=== PATIENT | female | born 1995 | race Caucasian/White ===

== ENCOUNTER → 2020-01-23 | Outpatient (CLI) | payer OTHER ==
[~2020-01-23] MED LIST: NONE PER PT
== END | disposition home or self-care (01) ==
LOC: STAR 08:00
PROVIDERS: ATTEND Dermatology
DX: Z20.828 Contact with and (suspected) exposure to other viral communicable diseases (principal); M25.371 Other instability, right ankle; M25.571 Pain in right ankle and joints of right foot
CPT/HCPCS: U0003

== ENCOUNTER 2020-01-28 12:58 | Day surgery (SDC) | payer OTHER ==
[~2020-01-28] VITALS: Ht 157.5 cm; Wt 117.0 kg
[2020-01-28] MEDS ORDERED: BUPIVACAINE/PF 0.25% ONE (13:03)
[2020-01-28] MEDS ORDERED: EPINEPHRINE 1 MG/ML, 1ML ONE ×2 (13:03→14:45)
[2020-01-28] MEDS ORDERED: NO HOME MEDS PER PT (13:19)
[2020-01-28 13:30] LABS: HCG UR SG 1.025 (1.003-1.030)
[2020-01-28] MEDS ORDERED: LACTATED RINGERS 1,000 ML IV SCH (13:30)
[2020-01-28] MEDS ORDERED: CHLORHEXIDINE 15 ML UDC MM ONE (13:30)
[2020-01-28] MEDS ORDERED: MIDAZOLAM 1 MG/ML, 2ML ONE (13:43)
[2020-01-28] MEDS ORDERED: FENTANYL PF 100 MCG/2ML ONE ×3 (13:43→16:37)
[2020-01-28] MEDS ORDERED: CEFAZOLIN 1,000 MG ONE ×2 (14:00→15:27)
[2020-01-28] MEDS ORDERED: KETOROLAC 30 MG/1 ML ONE (14:00)
[2020-01-28] MEDS ORDERED: LORazepam 2 MG/ML, 1ML IVPush PRN (14:30)
[2020-01-28] MEDS ORDERED: ACETAMINOPHEN 325 MG TABLET PO PRN (14:30)
[2020-01-28] MEDS ORDERED: MEPERIDINE/PF 25MG/0.5ML IVPush PRN (14:30)
[2020-01-28] MEDS ORDERED: OXYcodone 5 MG/5 ML ORAL.SOL UDC PO PRN (14:30)
[2020-01-28] MEDS ORDERED: ALBUTEROL SULFATE 2.5 MG/3 ML NPPB PRN (14:30)
[2020-01-28] MEDS ORDERED: HYDROmorphone 1 MG/ML, 1ML INJ IVPush PRN (14:30)
[2020-01-28] MEDS ORDERED: LABETALOL 5MG/ML, 20ML IV PRN (14:30)
[2020-01-28] MEDS ORDERED: PROMETHAZINE 25 MG/ML, 1ML IVPush PRN (14:30)
[2020-01-28] MEDS ORDERED: PROPOFOL 10 MG/ML, 20ML ONE (15:27)
[2020-01-28] MEDS ORDERED: DEXAMETHASONE 4 MG/ML, 5ML ONE ×2 (15:27)
[2020-01-28] MEDS ORDERED: BUPIVACAINE/PF 0.5% ONE ×2 (15:27)
[2020-01-28] MEDS ORDERED: ONDANSETRON 2MG/ML, 2ML ONE ×3 (15:27→15:29)
[2020-01-28] MEDS ORDERED: LIDOCAINE-MPF 2% ,5ML ONE (15:27)
[2020-01-28] MEDS: FENTANYL PF 100 MCG/2ML IV PRN ×2 (16:36→16:55)
[2020-01-28] MEDS ORDERED: OXYcodone 5 MG/5 ML ORAL.SOL UDC ONE (16:37)
== END 2020-01-28 18:10 | disposition home or self-care (01) ==
LOC: OUT 12:58
PROVIDERS: ATTEND Orthopaedic Surgery
DX: M25.371 Other instability, right ankle (principal); M65.872 Other synovitis and tenosynovitis, left ankle and foot; M93.279 Osteochondritis dissecans, unspecified ankle and joints of foot; M67.971 Unspecified disorder of synovium and tendon, right ankle and foot; E66.01 Morbid (severe) obesity due to excess calories; Z68.42 Body mass index [BMI] 45.0-49.9, adult; Z72.89 Other problems related to lifestyle
CPT/HCPCS: 27676; 27695; 27829; 29891; 29898; 64445; 64450; 73600; 81025; C1713; J0171; J0690; J1100; J1885; J2250; J2405; J2704; J3010; 76000